=== PATIENT | male | born 1990 | race Two or more races ===

== ENCOUNTER 2018-04-10 13:38 | Outpatient (CLI) | payer OTHER ==
[~2018-04-10 13:38] MED LIST: LEVSIN0.125 MG PO; PROTONIX40 MG PO
== END 2018-04-10 13:47 | disposition home or self-care (01) ==
LOC: RAD 501 13:38
DX: S62.336A Displaced fracture of neck of fifth metacarpal bone, right hand, initial encounter for closed fracture (principal)